=== PATIENT | female | born 1960 | race Hispanic/Latino ===

== ENCOUNTER 2019-04-04 12:27 | Emergency (ER) | payer BC ==
--- NOTE | 2019-04-04 13:25 | RAD REPORT ---
EXAM DESCRIPTION: CT - Head Brain Wo Cont - 04/04/2019 1:04 pm CLINICAL HISTORY: Headache, blunt force trauma to the right forehead COMPARISON: None. TECHNIQUE: Axial 5 mm thick images of the head were obtained without IV contrast. All CT scans are performed using dose optimization technique as appropriate and may include automated exposure control or mA/KV adjustment according to patient size. FINDINGS: No intracranial hemorrhage, mass, edema or shift of mid-line structures. No acute infarcti on changes seen. No abnormal extra-axial fluid collections. Ventricles are normal. Mastoid air cells and visualized portions of the paranasal sinuses are clear. No acute bony findings. Nasal bone and facial bones are not adequately visualized on this study for f urther assessment. Small right frontal scalp hematoma is present. No foreign body. IMPRESSION: No acute intracranial finding. Small right frontal scalp hematoma.
--- NOTE | 2019-04-04 13:55 | EDPHYS ---
Physician Documentation [facility] Name: Radha De La Cruz Age: 58 yrs Sex: Female : 1960 Arrival Date: 04/04/2019 Time: 12:30 Bed 19 Private MD: Anjelica Zapata K ED Physician Cooper Morataya HPI: 04/04 13:12 This 58 yrs old Female presents to ER via Ambulatory with complaints of Fall jmm Injury, Head Injury-Adult. 13:12 Details of fall: The patient fell from an upright position, while walking. Onset: The jmm symptoms/episode began/occurred acutely, 2 day(s) ago. Associated injuries: The patient sustained injury to the head. This is a 58 year old female with a history of dm that presents to the ED with complaints of nose bleed. Patient states she slipped while putting on a bathing suit 2 days ago, slipping and hitting her head on the ground. Patient states she was intoxicated at the time. Patient currently denies neck pain. patient became concerned after noticing blood from her nose. patient denies nasal pain. . Historical: - Allergies: 12:39 PENICILLINS; aj - Immunization history: Last tetanus immunization: unknown. - Social history:: Smoking status: . - Ebola Screening: : No symptoms or risks identified at this time. ROS: 13:12 Constitutional: Negative for fever, chills, and weight loss. jmm 13:12 ENT: Positive for nose bleed. 13:12 Neuro: Positive for headache, Negative for altered mental status, dizziness, gait disturbance, loss of consciousness, seizure activity, speech changes, syncope, tingling, weakness. 13:12 All other systems are negative. Exam: 13:12 Eyes: EOMI, no conjunctival erythema appreciated ENT: Moist Mucus Membranes jmm 13:12 Cardiovascular: Regular rate and rhythm. No edema appreciated Respiratory: Normal respirations, no respiratory distress appreciated Abdomen/GI: Non distended, soft Back: Normal ROM Skin: General appearance color normal MS/ Extremity: Moves all extremities, no obvious deformities appreciated, no edema noted to the lower extremities Neuro: Awake and alert, normal gait Psych: Behavior is normal, Mood is normal, Patient is cooperative and pleasant 13:12 Constitutional: The patient appears in no acute distress, alert, awake. 13:12 Head/face: frontal hematoma noted to the right side of the frontal scalp. 13:12 Neck: C-spine: appears grossly normal, ROM/movement: is normal. Vital Signs: 12:35 BP 147 / 77; Pulse 72; Resp 18; Temp 98.3; Pulse Ox 99% on R/A; Weight 99.79 kg; Height aj 5 ft. 1 in. (154.94 cm); 12:35 Body Mass Index 41.57 (99.79 kg, 154.94 cm) aj Washington Coma Score: 12:35 Eye Response: spontaneous(4). Verbal Response: oriented(5). Motor Response: obeys aj commands(6). Total: 15. Trauma Score (Adult): 12:35 Eye Response: spontaneous(1); Verbal Response: oriented(1); Motor Response: obeys aj commands(2); Systolic BP: > 89 mm Hg(4); Respiratory Rate: 10 to 29 per min(4); Washington Score: 15; Trauma Score: 12 MDM: 13:35 Patient medically screened. [facility] 13:54 Data reviewed: vital signs, nurses notes. Counseling: I had a detailed discussion with [facility] the patient and/or guardian regarding: the historical points, exam findings, and any diagnostic results supporting the discharge/admit diagnosis, radiology results, the need for outpatient follow up, to return to the emergency department if symptoms worsen or persist or if there are any questions or concerns that arise at home. 13:54 ED course: CT imaging negative. No focal neuro deficits appreciated Patient given head [facility] injury return precautions. Patient understood and agrees with the plan of care. . 04/04 13:12 Order name: Head Brain Wo Cont; Complete Time: 13:36 EDMS Administered Medications: No medications were administered Disposition: 21:47 Co-signature as Attending Physician, Cooper Morataya MD available for consultation at ps1 all times . Disposition: 04/04/19 13:55 Discharged to Home. Impression: Unspecified injury of head. - Condition is Stable. - Discharge Instructions: Head Injury, Adult. - Medication Reconciliation Form, Thank You Letter, Antibiotic Education, Prescription Opioid Use form. - Follow up: Anjelica Zapata MD; When: 2 - 3 days; Reason: Recheck today's complaints, Continuance of care, Re-evaluation by your physician. Signatures: Dispatcher [facility] Teri Dorantes RN RN sv Myers, Amanda, RN RN aj Mickail, Joel, PA PA jmm Singer, Phillip, MD MD ps1 Corrections: (The following items were deleted from the chart) 14:03 13:55 04/04/2019 13:55 Discharged to Home. Impression: Unspecified injury of head. sv Condition is Stable. Forms are Medication Reconciliation Form, Thank You Letter, Antibiotic Education, Prescription Opioid Use. Follow up: Anjelica Zapata; When: 2 - 3 days; Reason: Recheck today's complaints, Continuance of care, Re-evaluation by your physician. leonor
--- NOTE | 2019-04-04 13:55 | ER ---
Nurse's Notes [facility] Name: Radha De La Cruz Age: 58 yrs Sex: Female : 1960 Arrival Date: 04/04/2019 Time: 12:30 Bed 19 Private MD: Anjelica Zapata K Diagnosis: Unspecified injury of head Presentation: 04/04 12:35 Presenting complaint: Patient states: Hit forehead on ground on Thursday with unknown aj LOC. Reports blood in tissue when blowing nose. Care prior to arrival: None. Mechanism of Injury: Fall. Trauma event details: Injury occurred in the [facility], Injury occurred: at home. Injury occurred: April 02, 2019. 12:35 Acuity: DWAIN 4 aj 12:35 Method Of Arrival: Ambulatory aj 13:00 Transition of care: patient was not received from another setting of care. Onset of sv symptoms was April 03, 2019. Risk Assessment: Do you want to hurt yourself or someone else? Patient reports no desire to harm self or others. Initial Sepsis Screen: Does the patient meet any 2 criteria? No. Patient's initial sepsis screen is negative. Does the patient have a suspected source of infection? No. Patient's initial sepsis screen is negative. Trauma Activation: Not Applicable Physician: ED Physician; Name: ; Notified At: ; Arrived At: Physician: General Surgeon; Name: ; Notified At: ; Arrived At: Physician: Radiology; Name: ; Notified At: ; Arrived At: Physician: Respiratory; Name: ; Notified At: ; Arrived At: Physician: Lab; Name: ; Notified At: ; Arrived At: Historical: - Allergies: 12:39 PENICILLINS; aj - Immunization history: Last tetanus immunization: unknown. - Social history:: Smoking status: . - Ebola Screening: : No symptoms or risks identified at this time. Screenin:35 Abuse screen: Denies threats or abuse. Denies injuries from another. Nutritional sv screening: No deficits noted. Tuberculosis screening: No symptoms or risk factors identified. Fall Risk None identified. Assessment: 12:35 General: Appears in no apparent distress. comfortable, Behavior is calm, cooperative, aj appropriate for age. Pain: Complains of pain in face. Neuro: Reports headache. Respiratory: Airway is patent Respiratory effort is even, unlabored, Respiratory pattern is regular, symmetrical. Derm: Skin is intact, is healthy with good turgor, Skin is pink, warm \T\ dry. normal. 13:00 General: Appears in no apparent distress. comfortable, Behavior is calm, cooperative, sv appropriate for age. Pain: Complains of pain in face. Neuro: Level of Consciousness is awake, alert, obeys commands, Oriented to person, place, time, situation, Moves all extremities. Full function Gait is steady. Respiratory: Airway is patent Respiratory effort is even, unlabored, Respiratory pattern is regular, symmetrical. Derm: Skin is pink, warm \T\ dry. 14:02 Reassessment: Patient appears in no apparent distress at this time. No changes from sv previously documented assessment. Patient and/or family updated on plan of care and expected duration. Pain level reassessed. Patient is alert, oriented x 3, equal unlabored respirations, skin warm/dry/pink. Vital Signs: 12:35 BP 147 / 77; Pulse 72; Resp 18; Temp 98.3; Pulse Ox 99% on R/A; Weight 99.79 kg; Height aj 5 ft. 1 in. (154.94 cm); 12:35 Body Mass Index 41.57 (99.79 kg, 154.94 cm) aj Andreea Coma Score: 12:35 Eye Response: spontaneous(4). Verbal Response: oriented(5). Motor Response: obeys aj commands(6). Total: 15. Trauma Score (Adult): 12:35 Eye Response: spontaneous(1); Verbal Response: oriented(1); Motor Response: obeys aj commands(2); Systolic BP: > 89 mm Hg(4); Respiratory Rate: 10 to 29 per min(4); Andreea Score: 15; Trauma Score: 12 ED Course: 12:30 Patient arrived in ED. tw3 12:30 Anjelica Zapata MD is Private Physician. tw3 12:35 Patient has correct armband on for positive identification. Bed in low position. Call light in reach. 12:37 Triage completed. aj 12:39 Arm band placed on left wrist. aj 12:56 Ronnell Loya PA is PHCP. [facility] 12:56 Cooper Morataya MD is Attending Physician. [facility] 13:09 Teri Pond RN is Primary Nurse. sv 13:17 Head Brain Wo Cont In Process Unspecified. EDMS 13:55 Anjelica Zapata MD is Referral Physician. jmm 14:02 No provider procedures requiring assistance completed. Patient did not have IV access sv during this emergency room visit. Administered Medications: No medications were administered Outcome: 13:55 Discharge ordered by . jmm 14:02 Discharged to home ambulatory. sv 14:02 Condition: stable 14:02 Discharge instructions given to patient, Instructed on discharge instructions, follow up and referral plans. Demonstrated understanding of instructions, follow-up care. 14:03 Patient left the ED. sv Signatures: Dispatcher [employer] EDMS Teri Pond RN RN sv Myers, Amanda, RN RN aj Mickail, Joel, PA PA jmm Wade, Tia tw3
== END 2019-04-04 14:03 | disposition home or self-care (01) ==
LOC: ER 12:27
DX: S09.90XA Unspecified injury of head, initial encounter (principal); W01.198A Fall on same level from slipping, tripping and stumbling with subsequent striking against other object, initial encounter; Y93.89 Activity, other specified; Y92.9 Unspecified place or not applicable; Z88.0 Allergy status to penicillin
CPT/HCPCS: 70450; 99283

== ENCOUNTER → 2020-11-14 | Day surgery (SDC) | payer BC ==
[~2020-11-14] MED LIST: NA CHLORIDE 0.9% 1,000 ML ONE
--- OUTSIDE RECORDS SUMMARY | 2020-11-14 09:37 | XMS REPORT | Continuity of Care Document ---
:1960 Author Organization [facility] t Address [address] [place] [address] [address] [place] [address] Care Team Providers Name Role Phone Lab, Santiago Hawkins I Attending Clinician Unavailable Problems This patient has no known problems. Allergies, Adverse Reactions, Alerts This patient has no known allergies or adverse reactions. Medications This patient has no known medications. Procedures This patient has no known procedures. Encounters Start End Encounter Admission Attending Care Care Encounter Source Date/Time Date/Time Type Type Clinicians Facility Department ID 2020-06-05 2020-06-05 Laboratory Lab, [facility] [id number] 13:31:57 13:51:57 Only Fam Pob I [facility] [id number] [place] [id number] [facility] [phone] nal 0[address] Results This patient has no known results.
--- NOTE | 2020-11-14 21:21 | RAD REPORT ---
EXAM DESCRIPTION: US - Breast Core BX w/US Guidance - 11/14/2020 10:31 am CLINICAL HISTORY: N63.20 COMPARISON: November 05, 2020 ultrasound TECHNIQUE: The risks, benefits alternatives to the procedure were explained to the patient and infor med consent obtained. Skin and subcutaneous tissues anesthetized with lidocaine. Under sonographic guidance, three 14 gauge vacuum assisted core biopsies of the mass within the inner lower left breast obtained. 2 centimeter specimens taken. Materials given to pathology. Subsequently a localizing clip was placed into the mass. Patient experienced no immediate complication IMPRESSION: Vacuum assisted core biopsies of the left breast mass
== END ==
LOC: DS 09:16
PROVIDERS: ATTEND Obstetrics & Gynecology
DX: N63.20 Unspecified lump in the left breast, unspecified quadrant (principal)
CPT/HCPCS: 19083; 88305

== ENCOUNTER 2020-11-20 06:27 | Day surgery (SDC) | payer BC ==
--- OUTSIDE RECORDS SUMMARY | 2020-11-20 06:30 | XMS REPORT | Continuity of Care Document ---
:1960 Author Organization [facility] t Address [address] [place] [address] [address] [place] [address] Care Team Providers Name Role Phone Lab, [...] Department ID 2020-06-05 2020-06-05 Laboratory Lab, Adc [facility] [id number] 13:31:57 13:51:57 Only Fam Pob I [facility] [id number] [place] [id number] [facility] [phone] nal [phone] [address] One Results This patient has no known results.
[2020-11-20] MEDS ORDERED: LIDOCAINE 1% W/EPI 1:100,000 10 ML VIAL ONE (07:09)
[2020-11-20] MEDS ORDERED: NA CHLORIDE 0.9% 1,000 ML ONE (07:09)
[2020-11-20] MEDS ORDERED: FENTANYL CITR 100 MCG/2 ML ONE (07:17)
[2020-11-20] MEDS ORDERED: propofoL 200 MG/20 ML VIAL IV ONE (07:17)
[2020-11-20] MEDS ORDERED: LIDOCAINE 2% MPF 5 ML VIAL ONE (07:17)
[2020-11-20] MEDS ORDERED: MIDAZOLAM HCL 2 MG/2 ML INJ ONE (07:17)
[2020-11-20] MEDS ORDERED: ONDANSETRON 4 MG/2 ML VIAL ONE (07:54)
[2020-11-20] MEDS ORDERED: KETOROLAC 30 MG/ML INJ ONE (08:30)
[2020-11-20] MEDS: FENTANYL CITR 100 MCG/2 ML ONE ×3 (08:38→08:48)
[2020-11-20 09:31] VITALS: BP 107/57; TEMP 97; O2SAT 97
[2020-11-20] MEDS ORDERED: HYDROCODONE/APAP 5/325 MG TAB ONE (09:37)
--- NOTE | 2020-11-20 10:05 | OP ---
Date of Procedure: 11/20/2020 Surgeon: Siri Chanel MD Preoperative Diagnoses: Postmenopausal bleeding, severe cervical stenosis. The patient post ablatio n. Asherman syndrome. Postoperative Diagnoses: Postmenopausal bleeding, severe cervical stenosis. 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 Procedure Performed: Diagnostic hysteroscopy, dilation of the cervix under ultrasound guidance by pe lvic probe ultrasound, dilation and curettage. Anesthesia: General with LMA. Specimens: Scant endometrial curettings. Complications: None. Drains: None. Condition: Stable. Indications: The patient is a 60-year-old female presented with postmenopausal bleeding. Transvagin al ultrasound was performed. Endometrium appeared to be thickened. She has a history of an endometr ial ablation and since that ablation completely has been amenorrheic and went through menopause. On office hysteroscopy there was complete inability to pass through the cervical canal and find the endo metrial canal, so she was consented to have a hospital procedure where we could get into the uterine cavity without any increased risk of perforation if done under ultrasound guidance and this is schedu led. The patient consented and brought to the OR, after this was reconfirmed in the preop she was ta tres back to the OR, placed in a supine fashion on the operating table. General anesthesia was given. Placed in a dorsal lithotomy position. Pelvic exam was performed. Uterus was anteflexed. Vulva v agina prepped in sterile fashion. Speculum placed to expose the cervix. Anterior lip grasped with 2 Allis clamps. Diagnostic SlimLine hysteroscope was used to enter the cervical canal without any pro blems. Once I was able to visualize the area of the internal os, pelvic ultrasound was in place and showed me the anterior endometrial canal, which was anteflexed. So taking 12-Sami dilator, this ar ea was passed through with the dilator. Then serially dilated to 18-Sami under guidance, making downey re that this entered the endometrial canal. Once this was done safely, then the hysteroscope was misha ntroduced. Examination was performed. The left tubal ostium was visualized but rest of the cavity c ollapsed and there was significant amount of Asherman with intrauterine adhesions. The scope was pul led out, dilated further to accommodate the tip of a 0 curette. Then curettage was performed via vis ualizing the endometrium that was determined by ultrasound to be curetted and this was targeted and c urettage was performed. Still there were only scant curettings. These were sent for permanent patho logy. All the instruments were removed. Instrument and sponge counts were done and were correct. T here was confirmation that there was no uterine perforation and the patient tolerated the procedure w ell. All the instruments were removed. Instrument and sponge counts were done and were correct at t he end of the case. The patient was recovered from anesthesia and taken to the recovery room in a st able condition. She has instructions to see us back in a week for pathology results. She has not de signated anybody for me to call. After the procedure she was very comfortable with waiting the week to find out the results of the biopsy. So, we will see her back in a week, discharged home today. SULMA Voice ID: [id number] Report ID: [id number]
--- NOTE | 2020-11-20 10:51 | RAD REPORT ---
EXAM DESCRIPTION: US - Ultrasound Intraop - 11/20/2020 8:19 am CLINICAL HISTORY: Endometrial abnormality, ultrasound guidance for hysteroscopy and D&C COMPARISON: None FINDINGS: Transabdominal sonography was performed during intraoperative ultrasound guidance for hyst eroscopy and D&C. No suspicious or unexpected findings during the ultrasound guidance portion of the study. IMPRESSION: Ultrasound guidance for hysteroscopy scope positioning.
== END 2020-11-20 09:55 | disposition home or self-care (01) ==
LOC: OR 06:27
PROVIDERS: ATTEND Obstetrics & Gynecology
PROC: 0UJD8ZZ Inspection of Uterus and Cervix, Via Natural or Artificial Opening Endoscopic (ICD-10-PCS; 2020-11-20)
PROC: 0UDB7ZX Extraction of Endometrium, Via Natural or Artificial Opening, Diagnostic (ICD-10-PCS; principal; 2020-11-20 07:30)
DX: N95.0 Postmenopausal bleeding (principal); N88.2 Stricture and stenosis of cervix uteri; Z20.822 Contact with and (suspected) exposure to COVID-19
CPT/HCPCS: 82947 ×2; 88305; 76998; 58558; U0002; J2704; J2250; J3010 ×2; J7030; J2405

== ENCOUNTER 2020-11-30 06:29 | Day surgery (SDC) | payer BC ==
[2020-11-28 16:12] LABS: Absolute Lymphocytes (CBC) 2.7 K/uL (0.7-4.9); Basophils % 1.2 % (0-1.3); Hematocrit 42.7 % (36.0-45.0); Lymphocytes % 30.9 % (15.3-44.8); MPV 7.5 fL (7.6-11.3); RBC Red Blood Cell Count 4.79 M/uL (3.86-4.86)
--- NOTE | 2020-11-28 16:17 | RAD REPORT ---
EXAM DESCRIPTION: Boyd Fournier (2 Views)11/28/2020 4:06 pm CLINICAL HISTORY: Preoperative exam COMPARISON: 2018 FINDINGS: The lungs appear clear of acute infiltrate. The heart is normal size IMPRESSION: No acute abnormalities displayed
[2020-11-28 16:24] LABS: Potassium 3.8 mmol/L (3.5-5.1)
--- OUTSIDE RECORDS SUMMARY | 2020-11-30 06:34 | XMS REPORT | Summary of Care ---
:1960 Author Organization [facility] Address [address] [place] [id number] Care Team Providers Name Role Phone Anjelica Zapata Primary Care Provider Reason for Visit Reason Comments LAB COVID TEST Encounter Details Date Type Department Care Team Description 11/26/2020 Laboratory Only [facility] GabrieleRoseanne, TIRE AND TUBE REPAIRER [address] [address] Contact with or Medicine - [facility], [facility] Fam Pob I exposure to viral [address] [place] [address] disease (P rimary Dx) [place] [address] Allergies Not on Filedocumented as of this encounter (statuses as of 11/26/2020) Medications Not on filedocumented as of this encounter (statuses as of 11/26/2020) Active Problems Not on filedocumented as of this encounter (statuses as of 11/26/2020) Social History Tobacco Use Types Packs/Day Years Used Date Never Assessed Sex Assigned at Date Recorded Not on file COVID-19 Exposure Response Date Recorded In the last month, have you been in contact with Yes 11/26/2020 1:44 PM [employer] someone who was confirmed or suspected to have Coronavirus / COVID-19? documented as of this encounter Last Filed Vital Signs Not on filedocumented in this encounter Nursing Notes Viji Weller, THERESE - 11/26/2020 1:40 PM CSTRadha De La Cruz is a 60 year old female here for a Rule Out Covid-19 Nasopharyngeal Swab. Patient educated on plan of care for visit, swabbing technique, risks and benefits of test and length of time to receive results. Verbal consent obtained to perform test. CDC Fact Sheet for Patients provided to patient. All droplet and contact precautions taken with appropriate PPE worn while interacting with patient. - Goggles - N95 Mask - Gloves - Gown DY=101 O2 Sat=98% Patient swabbed using appropriate nasopharyngeal technique, and patient tolerated well. Patient was discharged in stable condition. Viji Sevilla RN 11/26/2020 1:44 PM [employer] documented in this encounter Plan of Treatment Name Type Priority Associated Diagnoses Order S sherie COVID-19 (MOLECULAR LAB Routine Contact with or expos ure Expected: 11/26/2020, TESTING to viral disease Expires: 2021 NUCLEIC ACID AMPLIFICATION) Health Maintenance Due Date Last Done Comments HEPATITIS C (HCV) SCREEN 1960 Depression Screening 1972 SARS-CoV-2 (COVID-19) Vaccine (1 of 1976 2) DTaP,Tdap,and Td Vaccines (1 - 1979 Tdap) PAP SMEAR 1981 Breast Cancer Screening (MAMMOGRAM) 2000 COLON CANCER SCREENING ANNUAL 2010 FIT/FOBT COLON CANCER SCREENING FIT DNA 2010 EVERY 3 YEARS COLON CANCER SCREENING 2010 SIGMOIDOSCOPY EVERY 5 YEARS COLONOSCOPY 2010 Colorectal Cancer Screening 2010 Zoster Recombinant Vaccine 2010 (SHINGRIX) (1 of 2) INFLUENZA VACCINE (#1) 2020 PNEUMOCOCCAL 0-64 YEARS COMBINED Aged Out No longer eligible based on SERIES patient's age to complete this topic documented as of this encounter Results Not on filedocumented in this encounter Visit Diagnoses Diagnosis Contact with or exposure to viral diseas e - Primary Contact with or exposure to other viral diseases documented in this encounter Additional Health Concerns Infection Onset Date Last Indicated Resolved Time COVID-19 Rule Out 11/26/2020 11/26/2020 documented as of this encounter Insurance Payer Benefit Plan Subscriber ID Effective Dates Phone Address Type / Group [facility] [id number] 2016-Viraj [phone] [address] PPO/POS [facility] [id number] [place] [address] documented as of this encounter
--- OUTSIDE RECORDS SUMMARY | 2020-11-30 06:34 | XMS REPORT | Continuity of Care Document ---
:1960 Author Organization [facility] t Address [address] [place] [address] Care Team Providers Name Role Phone Lab, Fam Pob I Attending Clinician Unavailable Problems This patient has no known problems. Allergies, Adverse Reactions, Alerts This patient has no known allergies or adverse reactions. Medications This patient has no known medications. Procedures This patient has no known procedures. Encounters Start End Encounter Admission Attending Care Care Encounter Source Date/Time Date/Time Type Type Clinicians Facility Department ID 2020-11-26 2020-11-26 Laboratory Lab, [facility] [id number] 13:42:08 14:02:08 Only Fam Pob I [facility] [id number] [place] [id number] [facility] [phone] nal 0[address] 2020-06-05 2020-06-05 Laboratory Lab, [facility] [id number] 13:31:57 13:51:57 Only Fam Pob I [facility] [id number] [place] [id number] [facility] [phone] nal 044 [address] One Results This patient has no known results.
[2020-11-30] MEDS ORDERED: NA CHLORIDE 0.9% 1,000 ML ONE ×3 (07:06→13:01)
[2020-11-30] MEDS ORDERED: CIPROFLOXACIN 400mg IV 400 MG/200 ML BAG IV ONE (07:07)
--- NOTE | 2020-11-30 08:08 | RAD REPORT ---
EXAM DESCRIPTION: NM - Lymphoscintigraphy - 11/30/2020 7:55 am CLINICAL HISTORY: BREAST CA, left, sentinel node biopsy procedure COMPARISON: No relevant comparison FINDINGS: Patient was administered 4 periareolar injections utilizing 0.1 millicuries technetium 99 M filtered sulfur colloid in each injection. Injection time was 0735 hours.
[2020-11-30] MEDS ORDERED: METHYLENE BLUE 0.5% 10 ML AMP ONE (09:15)
[2020-11-30] MEDS ORDERED: FENTANYL CITR 100 MCG/2 ML ONE ×2 (10:24→13:10)
[2020-11-30] MEDS ORDERED: propofoL 200 MG/20 ML VIAL IV ONE (10:24)
[2020-11-30] MEDS ORDERED: ONDANSETRON 4 MG/2 ML VIAL ONE (10:25)
[2020-11-30] MEDS ORDERED: KETOROLAC 30 MG/ML INJ ONE (10:25)
[2020-11-30] MEDS ORDERED: LIDOCAINE 1% MPF 30 ML VIAL ONE (10:25)
[2020-11-30] MEDS ORDERED: MIDAZOLAM HCL 2 MG/2 ML INJ ONE (10:25)
[2020-11-30] MEDS ORDERED: MORPHINE 10 MG/ML VIAL ONE (11:26)
[2020-11-30] MEDS ORDERED: NS 0.9% VIAL 10 ML ONE (11:26)
[2020-11-30] MEDS ORDERED: dexAMETHasone 4 MG/ML VIAL ONE (11:37)
--- NOTE | 2020-11-30 12:09 | OP ---
Date of Procedure: 11/30/2020 Surgeon: Jesus Ovalle MD Hand Candle Dipper: FAHEEM Ferrell. Preoperative Diagnosis: Left breast cancer. Postoperative Diagnosis: Left breast cancer. Procedure Performed: Left breast lumpectomy with sentinel node biopsy. Estimated Blood Loss: Minimal. Specimen: [place] node was negative for metastatic disease and lumpectomy specimen from the left br east. Margins were clear. Findings: As above. Anesthesia: General. Complications: None. The patient tolerated the procedure in stable condition, taken to Recovery in good general condition. Procedure In Detail: The patient was brought to the OR and placed in supine position. General anest hesia was begun. Under sterile condition, methylene blue injected in the periareolar region and the breast massaged for 5 minutes, then prepped and draped in usual sterile fashion. Then, the sentinel node accounting device was utilized in the standard fashion to localize the lymph node in the left ax illa. A 3 cm incision made deep to the subcutaneous tissue. A palpable lymph node identified, remov ed. Counts recorded in the medical record. It was not blue, however and frozen section revealed no evidence of metastatic disease. Wound was irrigated. Bleeding controlled with cautery. 3-0 chromic used to approximate the subcutaneous tissue and close skin and then a palpable mass in the inner tracy drant of the left breast palpated and then approximately a 10 x 4 cm incision used to include the bio psy site as well as the palpable mass down to the deep subcutaneous tissue and the entire lumpectomy specimen excised and sent to Pathology. Margins were free. Wound irrigated. Bleeding controlled wi th cautery. 3-0 chromic used to approximate the subcutaneous tissue and close. Sterile dressing was applied. The patient was awakened and taken to Recovery in good general condition. Discharge Note: The patient will go to Day Surgery and home when stable. Disposition: Home. Condition: Stable. Discharge Instructions: Resume home medications and diet. Activity as tolerated. No heavy lifting. Keep dressing clean and dry. Sponge bathe only. Follow up in my office next Thursday, call for jabari ointment. Tylenol No. 3 one tablet p.o. q.4 p.r.n. pain, Keflex 500 mg p.o. q.6. /MODL Voice ID: [id number] Report ID: [id number]
[2020-11-30] MEDS ORDERED: GLYCOPYRROLATE 0.2 MG/ML SYR ONE ×2 (12:58→13:07)
[2020-11-30 13:45] VITALS: BP 118/63; TEMP 96.3; O2SAT 100
[2020-11-30] MEDS ORDERED: HYDROCODONE/APAP 7.5/325 MG TAB ONE (13:46)
== END 2020-11-30 14:40 | disposition home or self-care (01) ==
LOC: OR 06:29
PROVIDERS: ATTEND Surgery
PROC: 0HBU0ZX Excision of Left Breast, Open Approach, Diagnostic (ICD-10-PCS; 2020-11-30)
PROC: 07B60ZX Excision of Left Axillary Lymphatic, Open Approach, Diagnostic (ICD-10-PCS; principal; 2020-11-30 09:45)
DX: C50.912 Malignant neoplasm of unspecified site of left female breast (principal)
CPT/HCPCS: 19301; 93005; 85025; 80048; 36415; 82947 ×2; 88307; 88333; 71046; 78195; 38525; 38900; J2704; J1100; J2250; J3010 ×2; J7030 ×3; J2405; J0744; A9541

== ENCOUNTER 2021-04-26 10:45 | Emergency (ER) | payer BC ==
--- OUTSIDE RECORDS SUMMARY | 2021-04-26 10:50 | XMS REPORT | Continuity of Care Document ---
:1960 Author Organization [facility] t Address [address] [place] [address] Care Team Providers Name Role Phone Lab, [...] Facility Department ID 2020-11-26 2020-11-26 Laboratory Lab, [facility] [id number] 13:42:08 14:02:08 Only Fam [facility] [id number] [place] [id number] Professio [phone] [address]al [address] 2020-06-05 2020-06-05 Laboratory Lab, [facility] [id number] 13:31:57 13:51:57 Only Fam [facility] [id number] [place] [id number] Professio [phone] [phone] Results This patient has no known results.
[2021-04-26] MEDS ORDERED: FENTANYL CITR 100 MCG/2 ML ONE (12:08)
[2021-04-26] MEDS ORDERED: ONDANSETRON 4 MG (ODT) TAB ONE (12:10)
--- NOTE | 2021-04-26 13:07 | RAD REPORT ---
EXAM DESCRIPTION: RAD - Forearm Right - 04/26/2021 12:54 pm CLINICAL HISTORY: Right arm pain status post fall FINDINGS: No fracture is seen. Soft tissue swelling
--- NOTE | 2021-04-26 14:20 | ER ---
Nurse's Notes [facility] Name: Radha De La Cruz Age: 60 yrs Sex: Female : 1960 Arrival Date: 04/26/2021 Time: 10:46 Bed 15 Private MD: Diagnosis: Sprain of unspecified part of right wrist and hand Presentation: 04/26 11:29 Chief complaint: Patient states: tripped over parking lot curb, fell onto right side, iw c/o pain to right breast and right wrist, abrasions to knees and arms, hx of breast cancer on left side, pt denies diff breathing or SOB, denies hitting head. Care prior to arrival: None. Mechanism of Injury: Fall. Trauma event details: Injury occurred in the [facility]. 11:29 Acuity: DWAIN 4 iw 11:29 Method Of Arrival: Ambulatory iw 11:30 Coronavirus screen: At this time, the client does not indicate any symptoms associated iw with coronavirus-19. Ebola Screen: Patient negative for fever greater than or equal to 101.5 degrees Fahrenheit, and additional compatible Ebola Virus Disease symptoms Patient denies exposure to infectious person. Patient denies travel to an Ebola-affected area in the 21 days before illness onset. No symptoms or risks identified at this time. Initial Sepsis Screen: Does the patient meet any 2 criteria? No. Patient's initial sepsis screen is negative. Does the patient have a suspected source of infection? No. Patient's initial sepsis screen is negative. Risk Assessment: Do you want to hurt yourself or someone else? Patient reports no desire to harm self or others. Onset of symptoms was April 26, 2021. Historical: - Allergies: 11:31 PENICILLINS; iw 11:31 Dilaudid; iw 11:31 Sulfa (Sulfonamide Antibiotics); iw 11:31 Adhesives; iw - Immunization history:: Adult Immunizations up to date. - Social history:: Smoking status: Patient denies any tobacco usage or history of. Screenin:35 Abuse screen: Denies threats or abuse. Nutritional screening: No deficits noted. ll1 Tuberculosis screening: No symptoms or risk factors identified. Fall Risk Fall in past 12 months (25 points). Ambulatory Aid- Crutches/Cane/Walker (15 pts). Total Cai Fall Scale indicates Low Risk Score (25-44 pts). Fall prevention measures have been instituted. Side Rails Up X 2 Frequent Obs/Assesments occuring As available Patient and Family Educated on Fall Prevention Program and strategies. Assessment: 11:34 General: Appears uncomfortable, Behavior is calm, cooperative, appropriate for age. ll1 Pain: Complains of pain in R wrist and R breast Pain currently is 7 out of 10 on a pain scale. Quality of pain is described as aching. Neuro: No deficits noted. Cardiovascular: No deficits noted. Respiratory: No deficits noted. Derm: abrasions to both knees and L arm. No active bleeding. Reports pain. Musculoskeletal: Circulation, motion, and sensation intact. Capillary refill < 3 seconds, Swelling present in R wrist Tenderness present in R wrist/R breast Reports pain in R wrist/R breast. Injury Description: Bruise. 12:27 Reassessment: Patient appears in no apparent distress at this time. Patient and/or ca1 family updated on plan of care and expected duration. Pain level reassessed. Patient is alert, oriented x 3, equal unlabored respirations, skin warm/dry/pink. Vital Signs: 11:33 BP 144 / 85; Pulse 82; Resp 17; Temp 98.3; Pulse Ox 99% ; Pain 7/10; ll1 12:27 BP 135 / 86; Pulse 78; Resp 18 S; Pulse Ox 98% on R/A; ca1 ED Course: 10:46 Patient arrived in ED. ds1 11:30 Triage completed. iw 11:31 Ronnell Loya PA is PHCP. [facility] 11:31 Aníbal Zepeda MD is Attending Physician. [facility] 11:33 Juwan Jacques, THERESE is Primary Nurse. ll1 11:34 Arm band placed on. iw 11:34 Patient has correct armband on for positive identification. iw 12:54 Forearm Right XRAY In Process Unspecified. EDMS 13:45 Orthoglass splint: Sugar tong splint applied on right arm. capillary refill <3 seconds, dh3 viewed by Ronnell WADSWORTH Sling applied to right arm. 14:31 No provider procedures requiring assistance completed. Patient did not have IV access iw during this emergency room visit. Administered Medications: 11:54 Drug: fentaNYL (PF) 25 mcg Route: IM; Site: right gluteus; ll1 12:37 Follow up: Response: No adverse reaction; Pain is decreased; RASS: Alert and Calm (0) ca1 11:54 Drug: Zofran (Ondansetron) 4 mg Route: PO; ll1 12:37 Follow up: Response: No adverse reaction; Nausea is decreased ca1 Outcome: 14:19 Discharge ordered by MD. galvez 14:31 Discharged to home ambulatory, with family. iw 14:31 Condition: good 14:31 Discharge instructions given to patient, Instructed on discharge instructions, follow up and referral plans. medication usage, Demonstrated understanding of instructions, follow-up care, medications, Prescriptions given X 2. 14:31 Patient left the ED. iw Signatures: Dispatcher [employer] EDMS Ronnell Loya PA PA Keily Villanueva ds1 Radha Da Silva RN RN iw Angela Baker 3 Bhargavi Gallgeos RN RN ca1 Juwan Jacques RN RN ll1 Corrections: (The following items were deleted from the chart) 11: 11:29 Chief complaint: Patient states: tripped over parking lot curb, fell onto right iw side, c/o pain to right breast and right wrist, abrasions to knees and arms, hx of breast cancer on left side, pt denies diff breathing or SOB iw
--- NOTE | 2021-04-26 14:20 | EDPHYS ---
Physician Documentation [facility] Name: Radha De La Cruz Age: 60 yrs Sex: Female : 1960 Arrival Date: 04/26/2021 Time: 10:46 Bed 15 Private MD: ED Physician Aníbal Zepeda HPI: 04/26 11:35 This 60 yrs old Female presents to ER via Ambulatory with complaints of Fall jmm Injury. 11:35 Details of fall: The patient fell from an upright position, while walking. Onset: The jmm symptoms/episode began/occurred acutely, just prior to arrival. Associated injuries: The patient sustained right wrist, knee bilaterally. The patient has not experienced similar symptoms in the past. Patient complains of pain to her right wrist, and knees bilaterally after tripping on a cement parking block. Denies head injury. . Historical: - Allergies: 11:31 PENICILLINS; iw 11:31 Dilaudid; iw 11:31 Sulfa (Sulfonamide Antibiotics); iw 11:31 Adhesives; iw - Immunization history:: Adult Immunizations up to date. - Social history:: Smoking status: Patient denies any tobacco usage or history of. ROS: 11:35 Constitutional: Negative for fever, chills, and weight loss, Cardiovascular: Negative jmm for chest pain, palpitations, and edema, Respiratory: Negative for shortness of breath, cough, wheezing, and pleuritic chest pain. 11:35 MS/extremity: Positive for injury or acute deformity. 11:35 All other systems are negative. Exam: 11:35 Constitutional: This is a well developed, well nourished patient who is awake, alert, jmm and in no acute distress. Head/Face: atraumatic. Eyes: EOMI, no conjunctival erythema appreciated ENT: Moist Mucus Membranes Neck: Trachea midline, Supple Chest/axilla: Normal chest wall appearance and motion. Cardiovascular: Regular rate and rhythm. No edema appreciated Respiratory: Normal respirations, no respiratory distress appreciated Abdomen/GI: Non distended, soft Back: Normal ROM 11:35 Musculoskeletal/extremity: pain noted to the distal radius of the right upper extremity, full radial pulse, compartments are soft, NVI. 11:35 Skin: abrasions noted to the right and left knee. 11:35 Neuro: Orientation: is normal, Mentation: is normal, Memory: is normal. 11:35 Psych: Behavior/mood is pleasant, cooperative. 14:05 Musculoskeletal/extremity: no snuff box tenderness appreciated. [facility] Vital Signs: 11:33 BP 144 / 85; Pulse 82; Resp 17; Temp 98.3; Pulse Ox 99% ; Pain 7/10; ll1 12:27 BP 135 / 86; Pulse 78; Resp 18 S; Pulse Ox 98% on R/A; ca1 MDM: 11:35 Patient medically screened. [facility] 14:18 Data reviewed: vital signs, nurses notes. Counseling: I had a detailed discussion with [facility] the patient and/or guardian regarding: the historical points, exam findings, and any diagnostic results supporting the discharge/admit diagnosis, radiology results, the need for outpatient follow up, to return to the emergency department if symptoms worsen or persist or if there are any questions or concerns that arise at home. ED course: Patient advised to follow up with pcp and otherwise given strict return precautions. patient understood and agrees with the plan of care. . 04/26 11:40 Order name: Forearm Right XRAY; Complete Time: 13:09 [facility] 04/26 13:09 Order name: Sugar Tong Forearm Splint; Complete Time: 13:48 [facility] 04/26 13:30 Order name: Sling; Complete Time: 13:48 [facility] Administered Medications: 11:54 Drug: fentaNYL (PF) 25 mcg Route: IM; Site: right gluteus; ll1 12:37 Follow up: Response: No adverse reaction; Pain is decreased; RASS: Alert and Calm (0) ca1 11:54 Drug: Zofran (Ondansetron) 4 mg Route: PO; ll1 12:37 Follow up: Response: No adverse reaction; Nausea is decreased ca1 Disposition Summary: 04/26/21 14:19 Discharge Ordered Location: Home [facility] Condition: Stable [facility] Diagnosis - Sprain of unspecified part of right wrist and hand [facility] Followup: [facility] - With: Private Physician - When: 2 - 3 days - Reason: Recheck today's complaints, Continuance of care, Re-evaluation by your physician Discharge Instructions: - Discharge Summary Sheet [facility] - Wrist Sprain, Adult [facility] Forms: - Medication Reconciliation Form [facility] - Thank You Letter [facility] - Antibiotic Education [facility] - Prescription Opioid Use jmm Prescriptions: - Ibuprofen 800 mg Oral Tablet - take 1 tablet by ORAL route every 8 hours As needed take with food; 30 tablet; [facility] Refills: 0, Product Selection Permitted - orphenadrine citrate 100 mg Oral Tablet Sustained Release - take 1 tablet by ORAL route 2 times per day As needed; 20 tablet; Refills: 0, [facility] Product Selection Permitted Addendum: 04/29/2021 13:29 Co-signature as Attending Physician, Aníabl Zepeda MD I agree with the assessment and [facility] plan of care. Signatures: Dispatcher [employer] EDMA Aníbal Zepeda MD MD kdr Mickail, Joel, PA PA Radha Joshua RN RN iw Juwan Jacques RN RN ll1 Bhargavi Gallegos RN ca1
[2021-04-26 14:36] VITALS: TEMP 98.3
[2021-04-26 14:37] VITALS: BP 135/86; O2SAT 98
== END 2021-04-26 14:31 | disposition home or self-care (01) ==
LOC: ER 10:45
PROC: 2W3CX1Z Immobilization of Right Lower Arm using Splint (ICD-10-PCS; principal; 2021-04-26)
DX: S63.91XA Sprain of unspecified part of right wrist and hand, initial encounter (principal); M25.562 Pain in left knee; M25.561 Pain in right knee; W01.0XXA Fall on same level from slipping, tripping and stumbling without subsequent striking against object, initial encounter; Y93.01 Activity, walking, marching and hiking; Z88.0 Allergy status to penicillin; Z88.2 Allergy status to sulfonamides; Z88.8 Allergy status to other drugs, medicaments and biological substances
CPT/HCPCS: 73090; 96372; 99284; 29125; J3010

== ENCOUNTER 2023-06-17 16:29 | Emergency (ER) | payer BC ==
--- OUTSIDE RECORDS SUMMARY | 2023-06-17 16:32 | XMS REPORT | Continuity of Care Document ---
:1960 Author Organization [facility] t Address [address] [place] [address] [place] [id number] Care Team Providers Name Role Phone IRISH ROTHMAN Primary Care Physician Unavailable BESSY JACK Attending Clinician Unavailable SEBASTIAN_GCBZW_Darío_S Attending Clinician Unavailable KAI NASH Attending Clinician Unavailable MANINDER RECINOS Attending Clinician Unavailable Radha Bagley RN Attending Clinician Unavailable CRISTAL GONZALEZ Attending Clinician Unavailable Only, Ang Db Test Attending Clinician Unavailable EbrahiCristal Garcia Attending Clinician Doctor Unassigned, [place] Attending Clinician Unavailable Lab, Adc Fam Pob I Attending Clinician Unavailable Evelyne Schilling Attending Clinician EVELYNE SUAZO Attending Clinician Unavailable SEBASTIAN_GCBZW_Susannaa_S Admitting Clinician Unavailable Payers Payer Name Policy Type Policy Number Effective Date Expiration Date S ource BCBS 2 [id number] 2022 00:00:00 [place] [id number] 2022 00:00:00 [place] Problems This patient has no known problems. Allergies, Adverse Reactions, Alerts Allergy Allergy Status Severity Reaction(s) Onset Inactive Treating Comm ents Source Name Type Date Date Clinician Sulfa Propensi Active LOW HEART Kelse y Drugs ty to 2-09 RATE Seybold adverse 00:00: - reaction 00 Externa s l Hydromor Propensi Active Other Marialuisa phone ty to 11-28 reaction( Seybold adverse 00:00: s): - reaction 00 Shortness Exter na s of breath l Penicill Propensi Active LOW HEART Thor ramirez ins ty to 11-28 RATEOther Seybold adverse 00:00: reaction( - reaction 00 s): Externa s syncope, l slow respirati ons NO KNOWN Drug Active [facility] ALLERGIE Class ity [facility] Social History Social Habit Start Date Stop Date Quantity Comments Source History SDOH Marialuisa Gandhijack ld - Alcohol Std External Drinks History JULIOOH Marialuisa Gandhijack ld - Alcohol Binge External History JULIOOH Marialuisa Gandhio ld - Alcohol Frequency [facility] [place] Alcohol intake 2023-01-06 2023-01-06 Current drinker Beto Bhatt - 00:00:00 00:00:00 of alcohol External (finding) Alcohol Comment 2022-12-09 2022-12-09 social Marialuisa romero - 00:00:00 00:00:00 External Sex [birth year] At [birth year] Marialuisa Perkins ybold - 00:00:00 00:00:00 External Smoking Status Start Date Stop Date Source Unknown if ever smoked [facility] Never smoked tobacco Marialuisa Gandhi old - External Medications Ordered Filled Start Stop Current Ordering Indication Dosage Frequency Signature Comments Components Source Medication Medication Date Date Medication? Clinician (SIG) Name Name Fexofenadin Yes Take by Thor ramirez e HCl 3-14 mouth Seybold (JOSELYN 16:22: - ALLERGY OR) 16 Externa l Cholecalcif Yes Take by Thor perkinsy tam 3-14 mouth Seybold (Vitamin 16:22: - D3) 1.25 MG 16 Externa (01387 UT) l oral Capsule Calcium Yes Take by Marialuisa Carb-Cholec 3-14 mouth Seybold alciferol 16:22: - (CALCIUM 16 Externa 600 + D OR) l ASPIRIN 81 Yes Take by Marge ey OR 3-14 mouth Seybold 16:22: - 16 Externa l Phentermine Yes [id number] 37.5mg Take 1 Marialuisa HCl 37.5 MG 3-14 104 tablet Seybol d oral Tablet 00:00: (37.5 mg - 00 total) by Externa mouth l every morning (before breakfast) Montelukast 0 2022- No 10mg Take 10 mg Marialuisa (SINGULAIR) 2-14 by mouth Sey bold 10 MG oral 16:06: 00:00 nightly - Tablet 23 :00 Externa tablet l Atorvastati 2022- No 20mg Take 20 mg Marialuisa n Calcium 12-09 by mouth Seybo ld 20 MG oral 16:06: 00:00 daily - Tablet 23 :00 Externa l Losartan 2022- No losartan Marge ey Potassium-H -09 12- 100 Seybold CTZ 16:05: 00:00 mg-hydroch - 100-12.5 MG 25 :00 lorothiazi Ex terna oral Tablet de 12.5 mg l tablet Fexofenadin Yes Take by Thor ramirez e HCl 2-14 mouth Seybold (JOSELYN 15:28: - ALLERGY OR) 34 Externa l Cholecalcif Yes Take by Thor perkinsy tam 2-14 mouth Seybold (Vitamin 15:28: - D3) 1.25 MG 34 Externa (62174 UT) l oral Capsule Calcium Yes Take by Marialuisa Carb-Cholec 2-14 mouth Seybold alciferol 15:28: - (CALCIUM 34 Externa 600 + D OR) l ASPIRIN 81 Yes Take by Marge ey OR 2-14 mouth Seybold 15:28: - 34 Externa l Losartan Yes [id number] 1{tbl} Take 1 K elsey Potassium-H 2-14 tablet by Sey bold CTZ 00:00: mouth - 100-12.5 MG 00 daily Externa oral Tablet l Montelukast Yes [id number] 10mg Take 1 Marialuisa (SINGULAIR) 2-14 tablet (10 Se ybold 10 MG oral 00:00: mg total) - Tablet 00 by mouth Externa tablet nightly l Atorvastati Yes [id number] 20mg Take 1 Marialuisa n Calcium 2-14 tablet (20 Seyb old 20 MG oral 00:00: mg total) - Tablet 00 by mouth Externa daily l Phentermine 0 Yes [id number] 37.5mg Take 1 Marialuisa HCl 37.5 MG 2-14 104 tablet Seybol d oral Tablet 00:00: (37.5 mg - 00 total) by Externa mouth l every morning (before breakfast) Losartan Yes [id number] 1{tbl} Take 1 K elsey Potassium-H 2-14 tablet by Sey bold CTZ 00:00: mouth - 100-12.5 MG 00 daily Externa oral Tablet l Montelukast Yes [id number] 10mg Take 1 Marialuisa (SINGULAIR) 2-14 tablet (10 Se ybold 10 MG oral 00:00: mg total) - Tablet 00 by mouth Externa tablet nightly l Atorvastati Yes [id number] 20mg Take 1 Marialuisa n Calcium 2-14 tablet (20 Seyb old 20 MG oral 00:00: mg total) - Tablet 00 by mouth Externa daily l Phentermine 0 2022- No [id number] 37.5mg Take 1 Marialuisa HCl 37.5 MG 2-14 -14 104 tablet Seybo ld oral Tablet 00:00: 00:00 (37.5 mg - 00 :00 total) by Externa mouth l every morning (before breakfast) Azithromyci 2022-0 2022- No [id number] Take 2 Marialuisa n 250 MG 2-14 - [id number] tablets by Sey bold oral Tablet 00:00: 00:00 mouth on - 00 :00 day 1 then Externa 1 tablet l by mouth daily for 4 days thereafter . Azithromyci 0 2022- No [id number] Take 2 Marialuisa n 250 MG 2-14 - [id number] tablets by Sey bold oral Tablet 00:00: 05:59 mouth on - 00 :00 day 1 then Externa 1 tablet l by mouth daily for 4 days thereafter . Anastrozole 2021-10 Yes TAKE 1 Marge ey 1 MG oral 1-19 TABLET BY Seybo ld Tablet 00:00: MOUTH - 00 EVERY DAY Externa FOR BREAST l CANCER Metformin 2021-10 Yes 1000mg Take 1,000 Marialuisa HCl 1000 MG 1-19 mg by Seybold oral Tablet 00:00: mouth in - 00 the Externa morning l and 1,000 mg in the evening. Take with meals. Anastrozole 2021-10 Yes TAKE 1 Marge ey 1 MG oral 1-19 TABLET BY Seybo ld Tablet 00:00: MOUTH - 00 EVERY DAY Externa FOR BREAST l CANCER Metformin 2021-10 Yes 1000mg Take 1,000 Marialuisa HCl 1000 MG 1-19 mg by Seybold oral Tablet 00:00: mouth in - 00 the Externa morning l and 1,000 mg in the evening. Take with meals. Vital Signs Vital Name Observation Time Observation Value Comments Source Systolic blood 2023-01-06 21:18:00 122 mm[Hg] Marialuisa Seybold - pressure External Diastolic blood 2023-01-06 21:18:00 70 mm[Hg] Beto y Seybold - pressure External Heart rate 2023-01-06 21:18:00 89 /min Marialuisa S eybold - External Body temperature 2023-01-06 21:18:00 36.56 Yue Marge ey Seybold - External Respiratory rate 2023-01-06 21:18:00 14 /min Marge ey Seybold - External Body height 2023-01-06 21:18:00 154.9 cm Marialuisa S eybold - External Body weight 2023-01-06 21:18:00 101.152 kg room 3 Marialuisa S eybold - External BMI 2023-01-06 21:18:00 42.14 kg/m2 Marialuisa S eybold - External Oxygen saturation in 2023-01-06 21:18:00 99 /min Marialuisa Seybold - Arterial blood by External Pulse oximetry Body temperature 2022-12-09 21:20:00 36.67 Yue Marge ey Seybold - External Respiratory rate 2022-12-09 21:20:00 15 /min Marge ey Seybold - External Body height 2022-12-09 21:20:00 154.9 cm Marialuisa S eybold - External Body weight 2022-12-09 21:20:00 102.513 kg Marialuisa S eybold - External BMI 2022-12-09 21:20:00 42.70 kg/m2 Marialuisa Irene eybold - External Systolic blood 2022-12-09 21:20:00 124 mm[Hg] Marialuisa Perkinsybold - pressure External Diastolic blood 2022-12-09 21:20:00 68 mm[Hg] Beto spears Seybold - pressure External Heart rate 2022-12-09 21:20:00 96 /min Marialuisa Irene reginabold - External Procedures Procedure Date / Time Performed Performing Clinician [facility] smita ASSIGNMENT OF BENEFITS 2021-10-15 17:05:27 Doctor Unassigned, No [facility] Encounters Start End Encounter Admission Attending Care Care Encounter Source Date/Time Date/Time Type Type Clinicians Facility Department ID 2023-06-17 2023-06-17 Outpatient MARIALUISA JACK [id number] Marialuisa 00:00:00 00:00:00 BESSY Perkinsybol tanya 2023-05-28 2023-05-28 Outpatient GC_GCBZW_Ka PRIV PRIV [id number] [facility] 00:00:00 00:00:00 diyala_S [id number] Medic al 2023-05-19 2023-05-19 Outpatient GC_GCBZW_Ka PRIV PRIV [id number] [facility] 00:00:00 00:00:00 diyala_S [id number] Medic al 2023-05-13 2023-05-13 Outpatient GC_GCBZW_Ka PRIV PRIV [id number] [facility] 00:00:00 00:00:00 diyala_S [id number] Medic al 2023-03-11 2023-03-11 Outpatient MARIALUISA NASH [id number] [place] 00:00:00 00:00:00 KAI Perkinsybol tanya 2023-02-16 2023-02-16 Outpatient MARIALUISA JACK [id number] Mar[place] 00:00:00 00:00:00 BESSY Perkinsybol tanya 2023-02-13 2023-02-13 Outpatient MARIALUISA NASH [id number] Mar[place]isa 00:00:00 00:00:00 KAI Perkinsybol tanya 2023-02-03 2023-02-03 Outpatient MANINDER RECINOS [id number] Mar[place]uisa 16:30:00 16:30:00 Seybol d 2023-01-07 2023-01-07 Outpatient MARIALUISA NASH [id number] [place] 08:00:00 08:00:00 KAI Seybol d 2023-01-06 2023-01-06 Outpatient MARIALUISA NASH MARIALUISA [id number] [place] 16:30:00 16:30:00 KAI Seybol tanya 2022-12-09 2022-12-09 Outpatient MARCIEMARIALUISA [id number] Marialuisa 15:15:00 15:15:00 BESSY Seybol d 2021-10-16 2021-10-16 Telephone RONY Bagley [id number] [facility] 00:00:00 00:00:00 Radha HUNTER [id number] it y of HOSPITAL [id number] Ren as [id number] [address] 2021-10-15 2021-10-15 Outpatient R JUAN [facility] [id number] Univers 11:15:00 12:36:50 RANIA ity of [facility] 2021-10-15 2021-10-15 Laboratory Only, Ang Db Test [facility] [id number] Univers 11:15:00 11:30:00 Only Juan Rania HEALTH [id number] ity of [facility] [id number] Ren as RED?BLEA [phone] [address] MEDICAL OFFICE BUILDING 2021-10-15 2021-10-15 Orders Doctor RONY [id number] Univers 00:00:00 00:00:00 Only Unassigned, ELSA [id number] ity of [place] [facility] [id number] Ren as [phone] [facility] 009 [place] 2020-11-26 2020-11-26 Laboratory Lab, Adc Fam Pob I [facility] 1.2. [id number] Univers 13:42:08 14:02:08 Only Evelyne Suazo Health [id number] ity of [place] [id number] Ren as Professio [phone] [place] [address] Office [address] [facility] 2020-11-26 2020-11-26 Laboratory Lab, [facility] [id number] 13:42:08 14:02:08 Only Fam Pob I Health [id number] [place] [id number] Professio [phone] [place] [address] [address] 2020-11-26 2020-11-26 Outpatient R MARRY [facility] [id number] Univers 13:40:00 13:40:[address] [facility] 2020-06-05 2020-06-05 Laboratory Lab, [facility] Pob I [facility] 1.2. [id number] Univers 13:31:57 13:51:57 Only Evelyne Suazo Health [id number] ity of [place] [id number] Ren as Professio [phone] [address] Office [address] 2020-06-05 2020-06-05 Laboratory Lab, [facility] [id number] 13:31:57 13:51:57 Only Fam Pob I Health [id number] [place] [id number] Professio [phone] [place] [address] [address] 2020-06-05 2020-06-05 Outpatient R MARRY [facility] [id number] Univers 13:40:00 13:40:[address] [facility] Results This patient has no known results.
[2023-06-17 17:33] LABS: Absolute Lymphocytes (CBC) 2.5 K/uL (0.7-4.9); Hematocrit 41.3 % (36.0-45.0); Lymphocytes % 30.1 % (15.3-44.8); MCV 89.8 fL (80-100); Platelets 292 thou/uL (152-406); RBC Red Blood Cell Count 4.59 M/uL (3.86-4.86)
--- NOTE | 2023-06-17 17:36 | RAD REPORT ---
EXAM DESCRIPTION: RAD - Chest Single View - 06/17/2023 5:30 pm CLINICAL HISTORY: CHEST PAIN Chest pain. COMPARISON: Chest Pa And Lat (2 Views) dated 11/28/2020; Chest Single View dated 11/19/2017 FINDINGS: Portable technique limits examination quality. Mild to moderate bilateral pulmonary opacities likely represent pulmonary edema or pneumonia. The hea rt is mildly enlarged in size. No displaced fractures.
[2023-06-17 17:47] LABS: Albumin 3.7 g/dL (3.4-5.0); Bilirubin Direct 0.1 mg/dL (0-0.2); Bilirubin Indirect, Calculated 0.3 mg/dL (0.2-0.8); Bilirubin Total 0.4 mg/dL (0.2-1.0); Potassium 3.5 mEq/L (3.5-5.1); Protein, Total 7.4 g/dL (6.4-8.2); Troponin High Sensitivity 6.1 pg/mL (<58.9)
--- NOTE | 2023-06-17 18:12 | EDPHYS ---
Physician Documentation [facility] Name: Radha De La Cruz Age: 62 yrs Sex: Female : 1960 Arrival Date: 06/17/2023 Time: 16:29 Bed 10 Private MD: ED Physician Nadir Sky HPI: 06/17 16:57 This 62 yrs old Female presents to ER via Ambulatory with complaints of High sb4 Blood Pressure, Cough. 16:57 The patient has elevated blood pressure and discovered this at work, with wrist BP sb4 measuring device. Onset: The symptoms/episode began/occurred today. Associated signs and symptoms: Pertinent positives: headache, Pertinent negatives: chest pain, dizziness, dyspnea, lightheadedness, nausea, visual changes, vomiting. 17:03 Patient states that she has had a headache on and off for the past 3 days that she sb4 cannot get rid of. She thought it might be secondary to elevated blood pressure so she purchased a wrist blood pressure cuff. She states that when she measured her blood pressure at work today she noted it to be elevated- 190s-200s systolic / 90s-100s diastolic. She called her PCP who referred her to the emergency department. Blood pressure reading 152/80 in triage. Historical: - Allergies: 16:44 PENICILLINS; nj1 16:44 Sulfa (Sulfonamide Antibiotics); nj1 16:44 Dilaudid; nj1 16:44 Adhesives; nj1 - PMHx: 16:44 Hyperlipidemia; Hypertension; nj1 16:48 Diabetes mellitus; nj1 - PSHx: 16:44 Lumpectomy of breast; Cholecystectomy; section; section; Torn nj1 meniscus repair, left; Ligation of fallopian tube; Ablation uterine; - Immunization history:: Client reports receiving the 2nd dose of the Covid vaccine. - Social history:: Smoking status: Patient denies any tobacco usage or history of. ROS: 17:03 Constitutional: Negative for fever, chills, and weight loss, Cardiovascular: Negative sb4 for chest pain, palpitations, and edema. 17:03 Neuro: Positive for headache, Negative for dizziness, visual changes. 17:03 All other systems are negative. Exam: 17:03 Constitutional: This is a well developed, well nourished patient who is awake, alert, sb4 and in no acute distress. Head/Face: Normocephalic, atraumatic. Eyes: Extra-ocular motions intact. Periorbital areas with no swelling, redness, or edema. ENT: Mucous membranes moist. Cardiovascular: Regular rate and rhythm with a normal S1 and S2. Respiratory: Lungs have equal breath sounds bilaterally, clear to auscultation and percussion. No rales, rhonchi or wheezes noted. No increased work of breathing, no retractions or nasal flaring. Abdomen/GI: Soft, non-tender, no distension. Skin: Warm, dry with normal turgor. Normal color with no rashes, no lesions, and no evidence of cellulitis. MS/ Extremity: Pulses equal, no cyanosis. Neurovascular intact. Full, normal range of motion. Neuro: Awake and alert, GCS 15, oriented to person, place, time, and situation. Cranial nerves II-XII grossly intact. Motor strength 5/5 in all extremities. Sensory grossly intact. Cerebellar exam normal. Normal gait. Vital Signs: 16:42 BP 152 / 80; Pulse 89; Resp 18; Temp 98.2(TE); Pulse Ox 97% ; Weight 97.52 kg; Height 5 nj1 ft. 1 in. ; Pain 2/10; 17:30 BP 130 / 72; Pulse 92; Resp 16; Pulse Ox 95% ; cm10 18:00 BP 134 / 66; Pulse 86; Resp 16; Pulse Ox 96% on R/A; cm10 18:15 BP 135 / 98; Pulse 80; Resp 18; Pulse Ox 98% on R/A; cm10 16:42 Body Mass Index 40.62 (97.52 kg, 154.94 cm) nj1 16:42 Pain Scale: Adult nj1 MDM: 16:32 Patient medically screened. sb4 17:03 Differential diagnosis: hypertensive crisis, Malignant HTN, CVA, intracerebral sb4 hemorrhage, ACS, false BP reading, migraine, headache. Data interpreted: Pulse oximetry: on room air is 97 %. Interpretation: normal. 17:21 Scoring Tools HEART Score: History: ECG: Age: Risk Factors: > or = 3 Risk factors for sb4 atherosclerotic disease (2), Troponin: Total Score = 3. 18:10 Data reviewed: vital signs, nurses notes, lab test result(s), EKG, radiologic studies, sb4 and as a result, I will discharge patient. Consideration of Admission/Observation Escalation of care including admission/observation considered. Care significantly affected by the following chronic conditions: Diabetes, Hypertension. Counseling: I had a detailed discussion with the patient and/or guardian regarding the historical points, exam findings, and any diagnostic results supporting the discharge/admit diagnosis, the presence of at least one elevated blood pressure reading (>120/80) during this emergency department visit, lab results, radiology results, to return to the emergency department if symptoms worsen or persist or if there are any questions or concerns that arise at home. ED course: . ED course: discussed xray findings with patient. she has had a cough for 3 weeks. will prescribe antibiotics. elevated BP readings likely secondary to pneumonia and inaccurate BP cuff. BP has improved here. she will follow up with her PCP to recheck her BP. 18:24 Independent interpretation of the following test(s) in the Emergency Department X-Ray: sb4 My interpretation is My interpretation of the chest x-ray images are bilateral basilar opacities. 06/17 16:53 Order name: Basic Metabolic Panel; Complete Time: 17:48 sb4 06/17 16:53 Order name: CBC with Diff; Complete Time: 17:36 sb4 06/17 16:53 Order name: LFT's; Complete Time: 17:48 sb4 06/17 16:53 Order name: Magnesium; Complete Time: 17:48 sb4 06/17 16:53 Order name: NT PRO-BNP; Complete Time: 17:48 sb4 06/17 16:53 Order name: Troponin HS; Complete Time: 17:48 sb4 06/17 16:53 Order name: XRAY Chest (1 view); Complete Time: 17:37 sb4 06/17 16:53 Order name: EKG; Complete Time: 16:54 sb4 06/17 16:53 Order name: Cardiac monitoring; Complete Time: 17:19 sb4 06/17 16:53 Order name: EKG - Nurse/Tech; Complete Time: 18:04 sb4 06/17 16:53 Order name: IV Saline Lock; Complete Time: 17:18 sb4 06/17 16:53 Order name: Labs collected and sent; Complete Time: 17:18 sb4 06/17 16:53 Order name: O2 Per Protocol; Complete Time: 17:18 sb4 06/17 16:53 Order name: O2 Sat Monitoring; Complete Time: 17:18 sb4 EC:04 Rate is 77 beats/min. Rhythm is regular, Normal Sinus Rhythm with Right bundle branch sb4 block. CA interval is normal at 166 msec. QRS interval is normal at 142 msec. QT interval is normal at 388 msec. No Q waves. T waves are Normal. No ST changes noted. Clinical impression: No change from prior ECG. Interpreted by me. Reviewed by me. Administered Medications: No medications were administered Disposition: 06/18 07:36 Co-signature as Attending Physician, Nadir Sky MD I reviewed the patient's care rt provided by the Advanced Practice Provider and agree with the diagnosis and treatment plan. Disposition Summary: 06/17/23 18:12 Discharge Ordered Location: Home sb4 Problem: new sb4 Symptoms: have improved sb4 Condition: Stable sb4 Diagnosis - Essential (primary) hypertension sb4 - Bibasilar Pneumonia sb4 Followup: sb4 - With: Private Physician - When: As needed - Reason: Recheck today's complaints, Continuance of care, Re-evaluation by your physician Discharge Instructions: - Discharge Summary Sheet sb4 - Hypertension, Adult sb4 - Community-Acquired Pneumonia, Adult sb4 - How to Take Your Blood Pressure sb4 Forms: - Medication Reconciliation Form sb4 - Thank You Letter sb4 - Antibiotic Education sb4 - Prescription Opioid Use sb4 - Patient Portal Instructions sb4 - Leadership Thank You Letter sb4 Prescriptions: - azithromycin 250 mg Oral tablet - take 1 dose pack by ORAL route as directed on dose pack For 250 mg dose pack: sb4 take 500 mg today (day 1), then 250 mg for 4 days (days 2-5); 1 Pack; Refills: 0, Product Selection Permitted - Tessalon Perles 100 mg Oral Capsule - take 1 capsule by ORAL route every 8 hours As needed; 15 capsule; Refills: 0, sb4 Product Selection Permitted - cefpodoxime 100 mg Oral Tablet - take 2 tablets by ORAL route every 12 hours for 10 days take with food; 40 sb4 tablet; Refills: 0, Product Selection Permitted Signatures: Dispatcher [employer] Hue Cabrera PA-C PA-C sb4 Nadir Sky MD MD rt Lara Garza RN RN nj1 Corrections: (The following items were deleted from the chart) 08/23 16:46 16:44 PMHx: Depression; nj1 nj1
--- NOTE | 2023-06-17 18:12 | ER ---
Nurse's Notes [facility] Name: Radha De La Cruz Age: 62 yrs Sex: Female : 1960 Arrival Date: 06/17/2023 Time: 16:29 Bed 10 Private MD: Diagnosis: Essential (primary) hypertension;Bibasilar Pneumonia Presentation: 06/17 16:42 Chief complaint: Patient states: High blood pressure. States she has been having nj1 headaches the past 3 days. Coronavirus screen: Vaccine status: Patient reports receiving the 2nd dose of the covid vaccine. Ebola Screen: Patient denies travel to an Ebola-affected area in the 21 days before illness onset. Initial Sepsis Screen: Does the patient meet any 2 criteria? No. Patient's initial sepsis screen is negative. Does the patient have a suspected source of infection? No. Patient's initial sepsis screen is negative. Risk Assessment: Do you want to hurt yourself or someone else? Patient reports no desire to harm self or others. Onset of symptoms was June 14, 2023. 16:42 Method Of Arrival: Ambulatory [facility] 16:42 Acuity: DWAIN 3 nj1 Triage Assessment: 18:20 General: Appears in no apparent distress. comfortable, Behavior is calm, cooperative. cm10 Pain: Complains of pain in head. Neuro: No deficits noted. Level of Consciousness is awake, alert, obeys commands, Oriented to person, place, time, situation. Respiratory: No deficits noted. Airway is patent Respiratory effort is even, unlabored, Respiratory pattern is regular, symmetrical. Historical: - Allergies: 16:44 PENICILLINS; nj1 16:44 Sulfa (Sulfonamide Antibiotics); nj1 16:44 Dilaudid; nj1 16:44 Adhesives; nj1 - PMHx: 16:44 Hyperlipidemia; Hypertension; nj1 16:48 Diabetes mellitus; nj1 - PSHx: 16:44 Lumpectomy of breast; Cholecystectomy; section; section; Torn nj1 meniscus repair, left; Ligation of fallopian tube; Ablation uterine; - Immunization history:: Client reports receiving the 2nd dose of the Covid vaccine. - Social history:: Smoking status: Patient denies any tobacco usage or history of. Screenin:20 [facility] ED Fall Risk Assessment (Adult) History of falling in the last 3 months, cm10 including since admission No falls in past 3 months (0 pts) Confusion or Disorientation No (0 pts) Intoxicated or Sedated No (0 pts) Impaired Gait No (0 pts) Mobility Assist Device Used No (0 pt) Altered Elimination No (0 pt) Score/Fall Risk Level 0 - 2 = Low Risk Oriented to surroundings, Maintained a safe environment, Hourly rounding (assess needs \T\ fall precautionary measures) done. Abuse screen: Denies threats or abuse. Denies injuries from another. Nutritional screening: No deficits noted. Tuberculosis screening: No symptoms or risk factors identified. Assessment: 18:21 Reassessment: Patient and/or family updated on plan of care and expected duration. Pain cm10 level reassessed. Patient is alert, oriented x 3, equal unlabored respirations, skin warm/dry/pink. Patient denies pain at this time. Patient states feeling better. Patient states symptoms have improved. Vital Signs: 16:42 BP 152 / 80; Pulse 89; Resp 18; Temp 98.2(TE); Pulse Ox 97% ; Weight 97.52 kg; Height 5 nj1 ft. 1 in. ; Pain 2/10; 17:30 BP 130 / 72; Pulse 92; Resp 16; Pulse Ox 95% ; cm10 18:00 BP 134 / 66; Pulse 86; Resp 16; Pulse Ox 96% on R/A; cm10 18:15 BP 135 / 98; Pulse 80; Resp 18; Pulse Ox 98% on R/A; cm10 16:42 Body Mass Index 40.62 (97.52 kg, 154.94 cm) nj1 16:42 Pain Scale: Adult [facility] ED Course: 16:32 Patient arrived in ED. mg5 16:32 Hue Cole PA-C is PHCP. sb4 16:32 Nadir Sky MD is Attending Physician. sb4 16:44 Triage completed. nj1 16:46 Arm band placed on right wrist. nj1 17:06 Ida Sharif, THERESE is Primary Nurse. cm10 17:19 Basic Metabolic Panel Sent. cm10 17:19 CBC with Diff Sent. cm10 17:19 LFT's Sent. cm10 17:19 Magnesium Sent. cm10 17:19 NT PRO-BNP Sent. cm10 17:19 Troponin HS Sent. cm10 17:19 Initial lab(s) drawn, by me, sent to lab. Inserted saline lock: 20 gauge in right cm10 antecubital area, using aseptic technique. Blood collected. 17:32 XRAY Chest (1 view) In Process Unspecified. EDMS 18:21 Patient has correct armband on for positive identification. Provided Education on: N/A. cm10 18:21 No provider procedures requiring assistance completed. IV discontinued, intact, cm10 bleeding controlled, No redness/swelling at site. Pressure dressing applied. Administered Medications: No medications were administered Medication: 18:31 VIS not applicable for this client. cm10 Outcome: 18:12 Discharge ordered by . sb4 18:31 Discharged to home ambulatory. cm10 18:31 Condition: good 18:31 Discharge instructions given to patient, Instructed on discharge instructions, follow up and referral plans. medication usage, Demonstrated understanding of instructions, follow-up care, medications, Prescriptions given X 3. 18:31 Patient left the ED. cm10 Signatures: Dispatcher [employer] EDMS Hue Cole PA-C PA-C sb4 Lara Garza RN RN nj1 Ida Sharif, RN RN cm10 Rosalinda Krishnan mg5 Corrections: (The following items were deleted from the chart) 16:46 16:42 Pulse 89bpm; Resp 18bpm; Pulse Ox 97%; Temp 98.2F Temporal; 97.52 kg; Height 5 nj1 ft. 1 in.; BMI: 40.6; Pain 2/10, Adult; [facility] 16:46 16:44 PMHx: Depression; nj1 nj 16:47 16:42 Chief complaint: Patient states: High blood pressure. States she has been having nj1 headaches the past 3 days. nj1
[2023-06-17 18:45] VITALS: TEMP 98.2
[2023-06-17 18:57] VITALS: BP 135/98; O2SAT 98
--- NOTE | 2023-06-18 12:38 | EKG ---
Test Date: 2023-06-17 Test Time: 18:01:04 Digital Sales Representative: BONILLA MEASUREMENT RESULTS: Intervals: Rate: 77 TN: 166 QRSD: 142 QT: 388 QTc: 439 [place]: P: 68 TN: 166 QRS: 82 T: 53 INTERPRETIVE STATEMENTS: Normal sinus rhythm Right bundle branch block Abnormal ECG Compared to ECG 11/28/2020 15:40:40 No significant changes Electronically Signed On 06-18-23 12:36:53 CDT by Slava Baldwin
== END 2023-06-17 18:31 | disposition home or self-care (01) ==
LOC: ER 16:29
DX: J18.8 Other pneumonia, unspecified organism (principal); I10 Essential (primary) hypertension; E11.9 Type 2 diabetes mellitus without complications; Z88.0 Allergy status to penicillin; Z88.2 Allergy status to sulfonamides; Z88.8 Allergy status to other drugs, medicaments and biological substances; Z91.048 Other nonmedicinal substance allergy status
CPT/HCPCS: 36415; 71045; 80048; 80076; 83735; 83880; 84484; 85025; 93005